=== PATIENT | female | born 1995 | race American Indian/Alaskan Native ===

== ENCOUNTER 2022-02-10 02:49 | Inpatient (IN) | payer SELFPAY ==
[2022-02-10] MEDS ORDERED: SODIUM CHLORIDE 0.9% 1000 ML 1,000 ML IV ONE ×2 (03:03→05:23)
[2022-02-10 03:32] LABS: Hematocrit 29.4 % (30.3-42.9); Hemoglobin 9.5 gm/dl (10.1-14.3); Mean Corpuscular HGB Conc 32 % (30-34); Mean Corpuscular Volume 95 fl (79-97); Platelet Count 263 K/mm3 (140-440); Red Blood Count 3.09 M/mm3 (3.65-5.03)
[2022-02-10 03:34] LABS: Red Cell Distribution Width 24.3 % (13.2-15.2)
[2022-02-10 03:39] LABS: INR 1.12 (0.87-1.13)
[2022-02-10 03:53] LABS: Alanine Aminotransferase 31 units/L (7-56); Albumin 3.3 g/dL (3.9-5); BUN/Creatinine Ratio 10; Blood Urea Nitrogen 4 mg/dL (7-17); Calcium 7.8 mg/dL (8.4-10.2); Hemolysis Index 4
[2022-02-10] MEDS ORDERED: THIAMINE 100 MG, FOLIC ACID 1 MG, MULTIPLE VITAMIN INJ, ADULT 10 ML in SODIUM CHLORIDE ... IV ONE (03:55)
--- NOTE | 2022-02-10 04:07 | XRay Report ---
CHEST 1 VIEW 02/10/2022 3:25 AM INDICATION / CLINICAL INFORMATION: Altered Mental Status. COMPARISON: None available. FINDINGS: SUPPORT DEVICES: None. HEART / MEDIASTINUM: No significant abnormality. LUNGS / PLEURA: No significant pulmonary or pleural abnormality. No pneumothorax. ADDITIONAL FINDINGS: A nipple shadow is noted on the right. IMPRESSION: 1. No acute chest process. Signer Name: Huseyin Hunter MD Signed: 02/10/2022 4:02 AM Workstation Name: [facility] [employer]
[2022-02-10 04:23] LABS: Anisocytosis 2+; Basophils % (Manual) 0 % (0.0-1.8); Eosinophils % (Manual) 0 % (0.0-4.3); Platelet Estimate Consistent w Auto; Total Cells Counted 100
--- NOTE | 2022-02-10 05:26 | Emergency Department Report ---
ED General Adult HPI - General Chief complaint: Hypoglycemia Stated complaint: HYPOGLYCEMIA PUI?: No Time Seen by Provider: 02/10/22 03:02 Source: patient, EMS Mode of arrival: Stretcher Limitations: No Limitations - History of Present Illness Initial comments: hypoglycemia patient took 100mg of benadryl also 26 YEARS OLD ALCOHOLIC, LAST SIP FEW DAYS AGO PER PATIENT SHE QUIT COLD TURKEY , TOOK 100 MG OF BENADRYL TONIGHT TO SLEEP, ems FOUND HER UNRESPONSIVE bs WAS LOW , -: days(s) Worsens with: none Associated Symptoms: denies: denies other symptoms, confusion, chest pain, cough Treatments Prior to Arrival: none - Related Data Allergies Allergy/AdvReac Type Severity Reaction Status Date / Time No Known Allergies Allergy Verified 02/10/22 03:18 ED Review of Systems ROS: Stated complaint: HYPOGLYCEMIA Other details as noted in HPI Constitutional: denies: chills, fever Eyes: denies: eye pain, eye discharge, vision change ENT: denies: ear pain, throat pain Respiratory: denies: cough, shortness of breath, wheezing Cardiovascular: denies: chest pain, palpitations Endocrine: no symptoms reported Gastrointestinal: denies: abdominal pain, nausea, diarrhea Genitourinary: denies: urgency, dysuria, discharge Musculoskeletal: denies: back pain, joint swelling, arthralgia Skin: denies: rash, lesions Neurological: denies: headache, weakness, paresthesias Psychiatric: denies: anxiety, depression Hematological/Lymphatic: denies: easy bleeding, easy bruising ED Past Medical Hx - Past Medical History Previous Medical History?: No Hx Hypertension: No ED Physical Exam - General Limitations: No Limitations General appearance: alert, cachectic - Head Head exam: Present: atraumatic, normocephalic - Eye Eye exam: Present: normal appearance - ENT ENT exam: Present: mucous membranes moist - Neck Neck exam: Present: normal inspection - Respiratory Respiratory exam: Present: normal lung sounds bilaterally. Absent: respiratory distress - Cardiovascular Cardiovascular Exam: Present: regular rate, normal rhythm. Absent: systolic murmur, diastolic murmur, rubs, gallop - GI/Abdominal GI/Abdominal exam: Present: soft, normal bowel sounds - Extremities Exam Extremities exam: Present: normal inspection - Back Exam Back exam: Present: normal inspection - Neurological Exam Neurological exam: Present: alert, oriented X3 - Psychiatric Psychiatric exam: Present: normal affect, normal mood - Skin Skin exam: Present: warm, dry, intact, normal color. Absent: rash ED Medical Decision Making - Lab Data Result diagrams: 02/10/22 03:11 02/10/22 03:11 Critical care attestation.: If time is entered above; I have spent that time in minutes in the direct care of this critically ill patient, excluding procedure time. ED Disposition Clinical Impression: Alcohol abuse, Alcoholic ketoacidosis, Hypoglycemia Disposition: ADMITTED INPATIENT Is pt being admited?: Yes Does the pt Need Aspirin: No Condition: Fair Referrals: PRIMARY CARE, [Primary Care Provider] - 3-5 Days
[2022-02-10] MEDS: POTASSIUM CHLORIDE 10 MEQ 10 MEQ/100 ML BAG IV SCH ×4 (07:39→17:52)
[2022-02-10 08:11] LABS: Amphetamine Screen,Urine Negative; Benzodiazepines Screen,Urine Negative; Cannabinoid Screen,Urine Negative; Cocaine Screen,Urine Negative; Methadone Screen,Urine Negative; Opiate Screen,Urine Negative
[2022-02-10] MEDS ORDERED: ACETAMINOPHEN 325 MG TAB PO PRN ×2 (08:16→19:34)
--- NOTE | 2022-02-10 08:16 | History and Physical Report ---
History of Present Illness Date of examination: 02/10/22 Date of admission: 02/10/2022 History of present illness: 26-year-old female with PMH of chronic alcohol abuse drinking two-point of vodka daily since years, alcoholic liver disease with elevated LFTs and alcohol use related seizures for which she was admitted to [facility] in 2020 lives with her sisters. Reportedly at the urgings of her family, she quit drinking cold turkey on day before yesterday at about 10 PM. She was not feeling well and did not eat much yesterday and the EMS was called as she was very sleepy and reported blood glucose was low and brought to ED. in the ED, afebrile with a stable vital signs, heart rate 102, WBC 19.6, hemoglobin 9.5, magnesium 1.2, potassium 3.2, chloride 92, CO2 18, anion gap 29, AST 181, ALT 31, ALP 307, lactic acid 9.9, drug screen negative except alcohol level 0.12 and glucose 140. Patient is currently fully alert and oriented and is able to offer a good history. She has coarse and tremors. Currently has no nausea and is hungry and wants to eat. Patient was given IV fluids, thiamine and 40 KCl IV in ED so far. Patient is being admitted for leukocytosis, nongap metabolic acidosis, lactic acidosis in the setting of alcohol abuse, hypoglycemia with poor p.o. intake, hypokalemia, hypomagnesemia with early alcohol withdrawal symptoms. Past History Past Medical History: liver disease, seizures. denies: COPD, diabetes, hypertension, stroke Past Surgical History: No surgical history Social history: smoking (3 cigars daily), alcohol abuse (2+ daily at least since 5 years), other (Lives with her sisters, denies using illicit drugs, currently unemployed.). denies: IV drug use Family history: CAD (2 maternal aunts), cancer (Grandmother had breast cancer), other (Father has alcoholism). denies: stroke Medications and Allergies Allergies Allergy/AdvReac Type Severity Reaction Status Date / Time No Known Allergies Allergy Verified 02/10/22 03:18 Active Meds: Active Medications Potassium Chloride (Kcl 10meq/100ml) 10 meq in 100 mls @ 100 mls/hr IV Q1H SHERWIN Stop: 02/10/22 10:59 Last Admin: 02/10/22 07:39 Dose: 100 mls/hr Review of Systems All systems: negative Constitutional: poor appetite, no fever, no chills Ears, nose, mouth and throat: sore throat Cardiovascular: no chest pain, no palpitations, no edema Respiratory: no cough, no shortness of breath, no congestion Gastrointestinal: no vomiting, no diarrhea, no hematochezia Genitourinary Female: no dysuria, no urinary frequency Musculoskeletal: no muscle cramps Integumentary: no rash Neurological: no seizures, no headaches Psychiatric: anxiety, no hallucinations Endocrine: low blood sugars, no polydipsia, no polyuria Hematologic/Lymphatic: no easy bruising, no easy bleeding Exam - Constitutional Vitals: Temp Pulse Resp BP Pulse Ox 97.9 F 108 H 20 130/90 100 02/10/22 07:38 02/10/22 07:38 02/10/22 07:38 02/10/22 07:38 02/10/22 07:38 General appearance: Present: no acute distress, well-nourished - EENT Eyes: Present: PERRL, EOM intact. Absent: scleral icterus ENT: hearing intact, clear oral mucosa - Neck Neck: Present: supple. Absent: masses or JVD - Respiratory Respiratory effort: normal Respiratory: bilateral: CTA - Cardiovascular Rhythm: regular - Extremities Extremities: pulses intact, No edema - Abdominal General gastrointestinal: Present: soft, non-tender, non-distended, normal bowel sounds Female genitourinary: Present: deferred - Rectal Rectal Exam: deferred - Integumentary Integumentary: Absent: rash - Musculoskeletal Musculoskeletal: strength equal bilaterally - Psychiatric Psychiatric: other (anxious) - Neurologic Neurologic: no focal deficits HEART Score - HEART Score Troponin: Troponin T < 0.010 ng/mL (0.00-0.029) 02/10/22 03:11 Results - Labs CBC & Chem 7: 02/10/22 03:11 02/10/22 07:04 Labs: Laboratory Last Values WBC 19.6 K/mm3 (4.5-11.0) H 02/10/22 03:11 RBC 3.09 M/mm3 (3.65-5.03) L 02/10/22 03:11 Hgb 9.5 gm/dl (10.1-14.3) L 02/10/22 03:11 Hct 29.4 % (30.3-42.9) L 02/10/22 03:11 MCV 95 fl (79-97) 02/10/22 03:11 MCH 31 pg (28-32) 02/10/22 03:11 MCHC 32 % (30-34) 02/10/22 03:11 RDW 24.3 % (13.2-15.2) H 02/10/22 03:11 Plt Count 263 K/mm3 (140-440) 02/10/22 03:11 Add Manual Diff Complete 02/10/22 03:11 Total Counted 100 02/10/22 03:11 Seg Neutrophils % Survey Workers Supervisor 02/10/22 03:11 Seg Neuts % (Manual) 97.0 % (40.0-70.0) H 02/10/22 03:11 Band Neutrophils % 0 % 02/10/22 03:11 Lymphocytes % (Manual) 1.0 % (13.4-35.0) L 02/10/22 03:11 Reactive Lymphs % (Man) 0 % 02/10/22 03:11 Monocytes % (Manual) 2.0 % (0.0-7.3) 02/10/22 03:11 Eosinophils % (Manual) 0 % (0.0-4.3) 02/10/22 03:11 Basophils % (Manual) 0 % (0.0-1.8) 02/10/22 03:11 Metamyelocytes % 0 % 02/10/22 03:11 Myelocytes % 0 % 02/10/22 03:11 Promyelocytes % 0 % 02/10/22 03:11 Blast Cells % 0 % 02/10/22 03:11 Nucleated RBC % Not Reportable 02/10/22 03:11 Seg Neutrophils # Man 19.0 K/mm3 (1.8-7.7) H 02/10/22 03:11 Band Neutrophils # 0.0 K/mm3 02/10/22 03:11 Lymphocytes # (Manual) 0.2 K/mm3 (1.2-5.4) L 02/10/22 03:11 Abs React Lymphs (Man) 0.0 K/mm3 02/10/22 03:11 Monocytes # (Manual) 0.4 K/mm3 (0.0-0.8) 02/10/22 03:11 Eosinophils # (Manual) 0.0 K/mm3 (0.0-0.4) 02/10/22 03:11 Basophils # (Manual) 0.0 K/mm3 (0.0-0.1) 02/10/22 03:11 Metamyelocytes # 0.0 K/mm3 02/10/22 03:11 Myelocytes # 0.0 K/mm3 02/10/22 03:11 Promyelocytes # 0.0 K/mm3 02/10/22 03:11 Blast Cells # 0.0 K/mm3 02/10/22 03:11 WBC Morphology Not Reportable 02/10/22 03:11 Hypersegmented Neuts Not Reportable 02/10/22 03:11 Hyposegmented Neuts Not Reportable 02/10/22 03:11 Hypogranular Neuts Not Reportable 02/10/22 03:11 Smudge Cells Not Reportable 02/10/22 03:11 Toxic Granulation Not Reportable 02/10/22 03:11 Toxic Vacuolation Not Reportable 02/10/22 03:11 Dohle Bodies Not Reportable 02/10/22 03:11 Pelger-Huet Anomaly Not Reportable 02/10/22 03:11 Jayce Rods Not Reportable 02/10/22 03:11 Platelet Estimate Consistent w auto 02/10/22 03:11 Clumped Platelets Not Reportable 02/10/22 03:11 Plt Clumps, EDTA Not Reportable 02/10/22 03:11 Large Platelets Not Reportable 02/10/22 03:11 Giant Platelets Not Reportable 02/10/22 03:11 Platelet Satelliting Not Reportable 02/10/22 03:11 Plt Morphology Comment Not Reportable 02/10/22 03:11 RBC Morphology Not Reportable 02/10/22 03:11 Dimorphic RBCs Not Reportable 02/10/22 03:11 Polychromasia Not Reportable 02/10/22 03:11 Hypochromasia Not Reportable 02/10/22 03:11 Poikilocytosis Not Reportable 02/10/22 03:11 Anisocytosis 2+ 02/10/22 03:11 Microcytosis Not Reportable 02/10/22 03:11 Macrocytosis Not Reportable 02/10/22 03:11 Spherocytes Not Reportable 02/10/22 03:11 Pappenheimer Bodies Not Reportable 02/10/22 03:11 Sickle Cells Not Reportable 02/10/22 03:11 Target Cells Not Reportable 02/10/22 03:11 Tear Drop Cells Not Reportable 02/10/22 03:11 Ovalocytes Not Reportable 02/10/22 03:11 Helmet Cells Not Reportable 02/10/22 03:11 [place] Bodies Not Reportable 02/10/22 03:11 [place] Rings Not Reportable 02/10/22 03:11 [place] Cells Not Reportable 02/10/22 03:11 Bite Cells Not Reportable 02/10/22 03:11 Crenated Cell Not Reportable 02/10/22 03:11 Elliptocytes Not Reportable 02/10/22 03:11 Acanthocytes (Spur) Not Reportable 02/10/22 03:11 Rouleaux Not Reportable 02/10/22 03:11 Hemoglobin C Crystals Not Reportable 02/10/22 03:11 Schistocytes Not Reportable 02/10/22 03:11 Malaria parasites Not Reportable 02/10/22 03:11 Mike Bodies Not Reportable 02/10/22 03:11 Hem Pathologist Commnt No 02/10/22 03:11 PT 16.0 Sec. (12.2-14.9) H 02/10/22 03:11 INR 1.12 (0.87-1.13) 02/10/22 03:11 Sodium 137 mmol/L (137-145) 02/10/22 03:11 Potassium 3.2 mmol/L (3.6-5.0) L 02/10/22 07:04 Chloride 92.9 mmol/L (98-107) L 02/10/22 03:11 Carbon Dioxide 18 mmol/L (22-30) L 02/10/22 03:11 Anion Gap 29 mmol/L 02/10/22 03:11 BUN 4 mg/dL (7-17) L 02/10/22 03:11 Creatinine 0.4 mg/dL (0.6-1.2) L 02/10/22 03:11 Estimated GFR > 60 ml/min 02/10/22 03:11 BUN/Creatinine Ratio 10 % 02/10/22 03:11 Glucose 140 mg/dL (65-100) H 02/10/22 03:11 Ketones Quantitative Negative (Negative) 02/10/22 03:11 Lactic Acid 10.10 mmol/L (0.7-2.0) H* 02/10/22 05:16 Calcium 7.8 mg/dL (8.4-10.2) L 02/10/22 03:11 Total Bilirubin 1.10 mg/dL (0.1-1.2) 02/10/22 03:11 AST 186 units/L (5-40) H 02/10/22 03:11 ALT 31 units/L (7-56) 02/10/22 03:11 Alkaline Phosphatase 309 units/L (35-129) H 02/10/22 03:11 Total Creatine Kinase 367 units/L (30-135) H 02/10/22 03:11 Troponin T < 0.010 ng/mL (0.00-0.029) 02/10/22 03:11 C-Reactive Protein 0.30 mg/dL (0.00-1.30) 02/10/22 03:11 NT-Pro-B Natriuret Pep 70.71 pg/mL (0-450) 02/10/22 03:11 Total Protein 6.9 g/dL (6.3-8.2) 02/10/22 03:11 Albumin 3.3 g/dL (3.9-5) L 02/10/22 03:11 Albumin/Globulin Ratio 0.9 % 02/10/22 03:11 Lipase 8 units/L (13-60) L 02/10/22 03:11 Salicylates < 0.3 mg/dL (2.8-20.0) L 02/10/22 03:11 Urine Opiates Screen Negative 02/10/22 Unknown Urine Methadone Screen Negative 02/10/22 Unknown Acetaminophen 5.0 ug/mL (10.0-30.0) L 02/10/22 03:11 Ur Barbiturates Screen Negative 02/10/22 Unknown Ur Phencyclidine Scrn Negative 02/10/22 Unknown Ur Amphetamines Screen Negative 02/10/22 Unknown U Benzodiazepines Scrn Negative 02/10/22 Unknown Urine Cocaine Screen Negative 02/10/22 Unknown U Marijuana (THC) Screen Negative 02/10/22 Unknown Plasma/Serum Alcohol 0.12 % (0-0.07) H 02/10/22 03:11 Assessment and Plan Assessment and plan: Chronic alcohol abuse, 2 points of vodka daily at least since 5 years or more History of alcohol use related seizures History of elevated LFTs, likely from alcohol abuse Reported altered mental status with a low blood glucose, currently fully alert and oriented Early alcohol withdrawal symptoms, last drink more than 24 hours ago per patient, alcohol level 0.12, patient wants to quit drinking Leukocytosis without focal symptoms/signs of sepsis None anion gap metabolic acidosis/lactic acidosis in the setting of alcohol abuse and poor p.o. intake Hypokalemia and hypomagnesemia Normocytic anemia, likely chronic Plan: Continue hydration with D5 normal saline with 20 KCl at home level per hour Lactic acid improving, continue to monitor Continue thiamine, folic acid and multivitamins daily. Replace potassium and magnesium and monitor levels. Placed on CIWA protocol. CXR, UA and blood cultures ordered We will hold off antibiotic therapy since patient does not appear to be septic DVT prophylaxis: Lovenox GI prophylaxis: Pepcid CODE STATUS: Full code Discussed with the patient in detail. Advance Directives: No VTE prophylaxis?: Chemical Plan of care discussed with patient/family: Yes
[2022-02-10] MEDS ORDERED: LORazepam 2 MG TAB PO PRN (08:22)
[2022-02-10] MEDS ORDERED: LORazepam 2 MG/ML VIAL IV PRN (08:22)
[2022-02-10] MEDS ORDERED: chlordiazePOXIDE 25 MG CAP PO PRN (08:22)
[2022-02-10] MEDS ORDERED: D5NS W/KCL 20 MEQ 20 MEQ/1,000 ML BAG IV SCH (09:00)
[2022-02-10] MEDS ORDERED: ONDANSETRON 4 MG/2 ML INJ IV PRN (09:30)
[2022-02-10] MEDS: LORazepam 2 MG/ML VIAL IV PRN (12:27)
[2022-02-10] MEDS: THIAMINE 100 MG TAB PO SCH (12:27)
[2022-02-10] MEDS: ENOXAPARIN 40 MG/0.4 ML INJ SUB-Q SCH (12:27)
[2022-02-10] MEDS: FOLIC ACID 1 MG TAB PO SCH (12:27)
[2022-02-10] MEDS: FAMOTIDINE 20 MG TAB PO SCH ×2 (12:28→23:29)
[2022-02-10] MEDS: MULTIVITAMINS,THER W-MINERALS TAB PO SCH (12:29)
[2022-02-10] MEDS ORDERED: oxyCODONE /ACETAMINOPHEN 5-325MG TAB PO PRN (19:34)
[2022-02-10] MEDS ORDERED: HYDROmorphone 0.5 MG/0.5 ML INJ IV PRN (19:34)
[2022-02-11] MEDS: LORazepam 2 MG/ML VIAL IV PRN (00:21)
[2022-02-11] MEDS ORDERED: MAGNESIUM SULFATE 4 GM/100 ML BAG IV ONE (03:12)
[2022-02-11 05:59] LABS: Bilirubin,Urine NEG (Negative); Blood,Urine LG (Negative); Color,Urine Red (Yellow)
[2022-02-11 06:04] LABS: Bacteria,Urine 3+ /HPF (Negative)
[2022-02-11 06:06] LABS: RBC,Urine > 182.0 /HPF (0.0-6.0); WBC,Urine > 182.0 /HPF (0.0-6.0)
--- NOTE | 2022-02-11 07:20 | XRay Report ---
CHEST 1 VIEW 02/11/2022 6:05 AM INDICATION / CLINICAL INFORMATION: Leukocytosis/sepsis. COMPARISON: 02/10/2022 FINDINGS: SUPPORT DEVICES: None. HEART / MEDIASTINUM: No significant abnormality. LUNGS / PLEURA: No significant pulmonary or pleural abnormality. No pneumothorax. ADDITIONAL FINDINGS: None IMPRESSION: 1. No acute chest process. Signer Name: Huseyin Hunter MD Signed: 02/11/2022 7:16 AM Workstation Name: [facility] [email or web address]
--- NOTE | 2022-02-11 11:53 | Electrocardiograph Report ---
[facility] Test Date: 2022-02-10 Test Time: 07:26:59 Pat Name: RONDA VALVERDE Department: Room: A383 1 Gender: F Marketing Project Manager: NURSE : 1995 Requested By: ABBE ALMONTE Order Number: [id number] Reading MD: Miguel Jensen Measurements Intervals [place] Rate: 105 P: 32 IA: 152 QRS: 60 QRSD: 69 T: 45 QT: 402 QTc: 532 Interpretive Statements Sinus tachycardia Nonspecific T abnormalities, anterior leads Prolonged QT interval No previous ECG available for comparison baseline artifact Electronically Signed On 02-11-2022 8:52:51 PDT by Miguel Jensen
--- NOTE | 2022-02-11 12:41 | Progress Note ---
Assessment and Plan Assessment and plan: #Alcohol dependence #Alcohol withdrawal complicated by seizure - Counseled patient on the importance of ETOH cessation. Assess patient's current ETOH consumption. Assisted with trying to arrange resources for patient to adequately work towards ETOH cessation. Patient expresses understanding. Continue with [facility] protocol. Continue multivitamin, folic acid, and thiamine daily -Time: +15 mins #Acute metabolic encephalopathyresolved Likely secondary from postictal state #Lactic acidosis Pending repeat lactic acid. Likely elevated secondary to acute seizure. #Leukocytosis WBC 19. Pending repeat labs. Likely DC significant decrease given acute seizure has since resolved. If leukocytosis and lactic acid continue to remain elevated, antibiotics will be initiated. #Acute cystitis without hematuria - Urinalysis revealing small leukocyte esterase, WBC >182, 4+ bacteria, 3+ WBC clumps Starting Bactrim double strength 1 tab twice daily x3 days. #Advanced care planning -Disease education conducted, care plan discussed, diagnoses discussed, prognosis discussed, and patient acknowledges understanding with care plan -Time: +30 min Disposition Plan: Continue medical management Total Time Spent with Patient (Minutes): 45 minutes History Interval history: No acute events overnight. Hospitalist Physical - Constitutional Vitals: Temp Pulse Resp BP Pulse Ox 99.0 F 109 H 18 111/70 100 02/11/22 11:27 02/11/22 11:27 02/11/22 11:27 02/11/22 11:27 02/11/22 11:27 General appearance: Present: no acute distress, well-nourished - EENT Eyes: Present: PERRL, EOM intact ENT: hearing intact, clear oral mucosa, dentition normal - Neck Neck: Present: supple, normal ROM - Respiratory Respiratory effort: normal Respiratory: bilateral: CTA - Cardiovascular Heart rate: 110 Rhythm: regular Heart Sounds: Present: S1 & S2 - Extremities Extremities: no ischemia, pulses intact, pulses symmetrical, No edema, normal temperature, normal color, Full ROM Peripheral Pulses: within normal limits - Abdominal General gastrointestinal: soft, non-tender, non-distended, normal bowel sounds - Integumentary Integumentary: Present: clear, warm, dry - Psychiatric Psychiatric: appropriate mood/affect, intact judgment & insight, memory intact, cooperative - Neurologic Neurologic: CNII-XII intact, moves all extremities - Allied Health Allied health notes reviewed: nursing HEART Score - HEART Score Troponin: Troponin T < 0.010 ng/mL (0.00-0.029) 02/10/22 03:11 Results - Labs CBC & Chem 7: 02/10/22 03:11 02/10/22 07:04 Labs: Laboratory Last Values WBC 19.6 K/mm3 (4.5-11.0) H 02/10/22 03:11 RBC 3.09 M/mm3 (3.65-5.03) L 02/10/22 03:11 Hgb 9.5 gm/dl (10.1-14.3) L 02/10/22 03:11 Hct 29.4 % (30.3-42.9) L 02/10/22 03:11 MCV 95 fl (79-97) 02/10/22 03:11 MCH 31 pg (28-32) 02/10/22 03:11 MCHC 32 % (30-34) 02/10/22 03:11 RDW 24.3 % (13.2-15.2) H 02/10/22 03:11 Plt Count 263 K/mm3 (140-440) 02/10/22 03:11 Add Manual Diff Complete 02/10/22 03:11 Total Counted 100 02/10/22 03:11 Seg Neutrophils % Solution Professional 02/10/22 03:11 Seg Neuts % (Manual) 97.0 % (40.0-70.0) H 02/10/22 03:11 Band Neutrophils % 0 % 02/10/22 03:11 Lymphocytes % (Manual) 1.0 % (13.4-35.0) L 02/10/22 03:11 Reactive Lymphs % (Man) 0 % 02/10/22 03:11 Monocytes % (Manual) 2.0 % (0.0-7.3) 02/10/22 03:11 Eosinophils % (Manual) 0 % (0.0-4.3) 02/10/22 03:11 Basophils % (Manual) 0 % (0.0-1.8) 02/10/22 03:11 Metamyelocytes % 0 % 02/10/22 03:11 Myelocytes % 0 % 02/10/22 03:11 Promyelocytes % 0 % 02/10/22 03:11 Blast Cells % 0 % 02/10/22 03:11 Nucleated RBC % Not Reportable 02/10/22 03:11 Seg Neutrophils # Man 19.0 K/mm3 (1.8-7.7) H 02/10/22 03:11 Band Neutrophils # 0.0 K/mm3 02/10/22 03:11 Lymphocytes # (Manual) 0.2 K/mm3 (1.2-5.4) L 02/10/22 03:11 Abs React Lymphs (Man) 0.0 K/mm3 02/10/22 03:11 Monocytes # (Manual) 0.4 K/mm3 (0.0-0.8) 02/10/22 03:11 Eosinophils # (Manual) 0.0 K/mm3 (0.0-0.4) 02/10/22 03:11 Basophils # (Manual) 0.0 K/mm3 (0.0-0.1) 02/10/22 03:11 Metamyelocytes # 0.0 K/mm3 02/10/22 03:11 Myelocytes # 0.0 K/mm3 02/10/22 03:11 Promyelocytes # 0.0 K/mm3 02/10/22 03:11 Blast Cells # 0.0 K/mm3 02/10/22 03:11 WBC Morphology Not Reportable 02/10/22 03:11 Hypersegmented Neuts Not Reportable 02/10/22 03:11 Hyposegmented Neuts Not Reportable 02/10/22 03:11 Hypogranular Neuts Not Reportable 02/10/22 03:11 Smudge Cells Not Reportable 02/10/22 03:11 Toxic Granulation Not Reportable 02/10/22 03:11 Toxic Vacuolation Not Reportable 02/10/22 03:11 Dohle Bodies Not Reportable 02/10/22 03:11 Pelger-Huet Anomaly Not Reportable 02/10/22 03:11 Jayce Rods Not Reportable 02/10/22 03:11 Platelet Estimate Consistent w auto 02/10/22 03:11 Clumped Platelets Not Reportable 02/10/22 03:11 Plt Clumps, EDTA Not Reportable 02/10/22 03:11 Large Platelets Not Reportable 02/10/22 03:11 Giant Platelets Not Reportable 02/10/22 03:11 Platelet Satelliting Not Reportable 02/10/22 03:11 Plt Morphology Comment Not Reportable 02/10/22 03:11 RBC Morphology Not Reportable 02/10/22 03:11 Dimorphic RBCs Not Reportable 02/10/22 03:11 Polychromasia Not Reportable 02/10/22 03:11 Hypochromasia Not Reportable 02/10/22 03:11 Poikilocytosis Not Reportable 02/10/22 03:11 Anisocytosis 2+ 02/10/22 03:11 Microcytosis Not Reportable 02/10/22 03:11 Macrocytosis Not Reportable 02/10/22 03:11 Spherocytes Not Reportable 02/10/22 03:11 Pappenheimer Bodies Not Reportable 02/10/22 03:11 Sickle Cells Not Reportable 02/10/22 03:11 Target Cells Not Reportable 02/10/22 03:11 Tear Drop Cells Not Reportable 02/10/22 03:11 Ovalocytes Not Reportable 02/10/22 03:11 Helmet Cells Not Reportable 02/10/22 03:11 [place] Bodies Not Reportable 02/10/22 03:11 [place] Rings Not Reportable 02/10/22 03:11 Crump Cells Not Reportable 02/10/22 03:11 Bite Cells Not Reportable 02/10/22 03:11 Crenated Cell Not Reportable 02/10/22 03:11 Elliptocytes Not Reportable 02/10/22 03:11 Acanthocytes (Spur) Not Reportable 02/10/22 03:11 Rouleaux Not Reportable 02/10/22 03:11 Hemoglobin C Crystals Not Reportable 02/10/22 03:11 Schistocytes Not Reportable 02/10/22 03:11 Malaria parasites Not Reportable 02/10/22 03:11 Mike Bodies Not Reportable 02/10/22 03:11 Hem Pathologist Commnt No 02/10/22 03:11 PT 16.0 Sec. (12.2-14.9) H 02/10/22 03:11 INR 1.12 (0.87-1.13) 02/10/22 03:11 Sodium 137 mmol/L (137-145) 02/10/22 03:11 Potassium 3.2 mmol/L (3.6-5.0) L 02/10/22 07:04 Chloride 92.9 mmol/L (98-107) L 02/10/22 03:11 Carbon Dioxide 18 mmol/L (22-30) L 02/10/22 03:11 Anion Gap 29 mmol/L 02/10/22 03:11 BUN 4 mg/dL (7-17) L 02/10/22 03:11 Creatinine 0.4 mg/dL (0.6-1.2) L 02/10/22 03:11 Estimated GFR > 60 ml/min 02/10/22 03:11 BUN/Creatinine Ratio 10 % 02/10/22 03:11 Glucose 140 mg/dL (65-100) H 02/10/22 03:11 Ketones Quantitative Negative (Negative) 02/10/22 03:11 Lactic Acid 10.10 mmol/L (0.7-2.0) H* 02/10/22 05:16 Calcium 7.8 mg/dL (8.4-10.2) L 02/10/22 03:11 Magnesium 1.20 mg/dL (1.7-2.3) L 02/10/22 08:29 Total Bilirubin 1.10 mg/dL (0.1-1.2) 02/10/22 03:11 AST 186 units/L (5-40) H 02/10/22 03:11 ALT 31 units/L (7-56) 02/10/22 03:11 Alkaline Phosphatase 309 units/L (35-129) H 02/10/22 03:11 Total Creatine Kinase 367 units/L (30-135) H 02/10/22 03:11 Troponin T < 0.010 ng/mL (0.00-0.029) 02/10/22 03:11 C-Reactive Protein 0.30 mg/dL (0.00-1.30) 02/10/22 03:11 NT-Pro-B Natriuret Pep 70.71 pg/mL (0-450) 02/10/22 03:11 Total Protein 6.9 g/dL (6.3-8.2) 02/10/22 03:11 Albumin 3.3 g/dL (3.9-5) L 02/10/22 03:11 Albumin/Globulin Ratio 0.9 % 02/10/22 03:11 Lipase 8 units/L (13-60) L 02/10/22 03:11 Urine Color Red (Yellow) 02/11/22 Unknown Urine Turbidity Cloudy (Clear) 02/11/22 Unknown Urine pH 7.0 (5.0-7.0) 02/11/22 Unknown Ur Specific [place] 1.011 (1.003-1.030) 02/11/22 Unknown Urine Protein 30 mg/dl mg/dL (Negative) 02/11/22 Unknown Urine Glucose (UA) Neg mg/dL (Negative) 02/11/22 Unknown Urine Ketones Neg mg/dL (Negative) 02/11/22 Unknown Urine Blood Lg (Negative) 02/11/22 Unknown Urine Nitrite Neg (Negative) 02/11/22 Unknown Urine Bilirubin Neg (Negative) 02/11/22 Unknown Urine Urobilinogen 2.0 mg/dL (<2.0) 02/11/22 Unknown Ur Leukocyte Esterase Sm (Negative) 02/11/22 Unknown Urine WBC (Auto) > 182.0 /HPF (0.0-6.0) H 02/11/22 Unknown Urine RBC (Auto) > 182.0 /HPF (0.0-6.0) 02/11/22 Unknown U Epithel Cells (Auto) 4.0 /HPF (0-13.0) 02/11/22 Unknown Urine Bacteria (Auto) 3+ /HPF (Negative) 02/11/22 Unknown Urine WBC Clumps 3+ /HPF 02/11/22 Unknown Urine Yeast (Budding) 3+ /HPF 02/11/22 Unknown Salicylates < 0.3 mg/dL (2.8-20.0) L 02/10/22 03:11 Urine Opiates Screen Negative 02/10/22 Unknown Urine Methadone Screen Negative 02/10/22 Unknown Acetaminophen 5.0 ug/mL (10.0-30.0) L 02/10/22 03:11 Ur Barbiturates Screen Negative 02/10/22 Unknown Ur Phencyclidine Scrn Negative 02/10/22 Unknown Ur Amphetamines Screen Negative 02/10/22 Unknown U Benzodiazepines Scrn Negative 02/10/22 Unknown Urine Cocaine Screen Negative 02/10/22 Unknown U Marijuana (THC) Screen Negative 02/10/22 Unknown Drugs of Abuse Note Disclamer 02/10/22 Unknown Plasma/Serum Alcohol 0.12 % (0-0.07) H 02/10/22 03:11 Microbiology: Microbiology 02/10/22 08:29 Peripheral/Venous Blood Culture - Preliminary Culture in Progress 02/10/22 08:29 Peripheral/Venous Blood Culture - Preliminary Culture in Progress Genao/IV: Voiding Method External Female Catheter Active Medications - Current Medications Current Medications: Generic Name Dose Route Start Last Admin Trade Name Freq PRN Reason Stop Dose Admin Acetaminophen 650 mg 02/10/22 19:34 Acetaminophen 325 Mg Tab PO Q4H PRN Pain MILD(1-3)/Fever >100.5/CHEN Chlordiazepoxide HCl 50 mg 02/10/22 08:22 Chlordiazepoxide 25 Mg Cap PO Q1H PRN CIWA-Ar 8-15 Enoxaparin Sodium 40 mg 02/10/22 10:00 02/10/22 12:27 Enoxaparin 40 Mg/0.4 Ml Inj SUB-Q Not Given DAILY SHERWIN Protocol Famotidine 20 mg 02/10/22 10:00 02/10/22 23:29 Famotidine 20 Mg Tab PO 20 mg BID SHERWIN Administration Folic Acid 1 mg 02/10/22 10:00 02/10/22 12:27 Folic Acid 1 Mg Tab PO 1 mg QDAY SHERWIN Administration Potassium Chloride/Dextrose/Sod Cl 20 meq in 1,000 mls @ 125 mls/hr 02/10/22 09:00 D5w/Ns W/Kcl 20meq IV DIRECT SHERWIN Lorazepam 2 mg 02/10/22 08:22 Lorazepam 2 Mg Tab PO Q1H PRN CIWA-Ar 8-15 Lorazepam 4 mg 02/10/22 08:22 02/11/22 00:21 Lorazepam 2 Mg/Ml Vial IV 4 mg Q1H PRN Administration CIWA-Ar 16-25 Lorazepam 4 mg 02/10/22 08:22 Lorazepam 2 Mg/Ml Vial IV Q15MIN PRN CIWA-Ar >25 Multivitamins/Minerals 1 each 02/10/22 10:00 02/10/22 12:29 Multivitamins,Ther W-Minerals Tab PO 1 each QDAY SHERWIN Administration Ondansetron HCl 4 mg 02/10/22 09:30 Ondansetron 4 Mg/2 Ml Inj IV Q8H PRN Nausea And Vomiting Sodium Chloride 10 ml 02/10/22 10:00 02/10/22 23:30 Sodium Chloride 0.9% 10 Ml Flush Syringe IV 10 ml BID SHERWIN Administration Sodium Chloride 10 ml 02/10/22 08:16 Sodium Chloride 0.9% 10 Ml Flush Syringe IV PRN PRN LINE FLUSH Sodium Chloride 10 ml 02/10/22 22:00 02/10/22 23:30 Sodium Chloride 0.9% 10 Ml Flush Syringe IV Not Given BID SHERWIN Sodium Chloride 10 ml 02/10/22 19:34 Sodium Chloride 0.9% 10 Ml Flush Syringe IV PRN PRN LINE FLUSH Thiamine HCl 100 mg 02/10/22 10:00 02/10/22 12:27 Thiamine 100 Mg Tab PO 100 mg DAILY SHERWIN Administration
[2022-02-11] MEDS: THIAMINE 100 MG TAB PO SCH (12:50)
[2022-02-11] MEDS: FAMOTIDINE 20 MG TAB PO SCH (12:50)
[2022-02-11] MEDS: FOLIC ACID 1 MG TAB PO SCH (12:51)
[2022-02-11] MEDS: MULTIVITAMINS,THER W-MINERALS TAB PO SCH (12:52)
[2022-02-11] MEDS: ENOXAPARIN 40 MG/0.4 ML INJ SUB-Q SCH ×2 (12:54→16:20)
[2022-02-11] MEDS ORDERED: POTASSIUM CHLORIDE ER 20 MEQ TAB PO ONE (13:00)
[2022-02-11 20:46] VITALS: BP 106/70
[2022-02-11 20:47] LABS: Basophils % (Auto) 0.5 % (0.0-1.8); Eosinophils % (Auto) 0.4 % (0.0-4.3); Hemoglobin 7.3 gm/dl (10.1-14.3); Lymphocytes # (Auto) 0.9 K/mm3 (1.2-5.4); Lymphocytes % (Auto) 17.2 % (13.4-35.0); Mean Corpuscular HGB Conc 32 % (30-34); Mean Corpuscular Volume 94 fl (79-97); Monocytes # (Auto) 0.2 K/mm3 (0.0-0.8); Monocytes % (Auto) 4.5 % (0.0-7.3); Platelet Count 150 K/mm3 (140-440); Red Blood Count 2.46 M/mm3 (3.65-5.03)
[2022-02-11 20:49] LABS: Red Cell Distribution Width 23.4 % (13.2-15.2)
[2022-02-11 21:12] LABS: Blood Urea Nitrogen 2 mg/dL (7-17); Calcium 7.2 mg/dL (8.4-10.2); Hemolysis Index 3
[2022-02-11 21:16] LABS: Alanine Aminotransferase 28 units/L (7-56); Albumin 2.8 g/dL (3.9-5); Blood Urea Nitrogen 2 mg/dL (7-17); Calcium 7.3 mg/dL (8.4-10.2); Hemolysis Index 0
[2022-02-11 21:22] LABS: BUN/Creatinine Ratio 5
[2022-02-11 21:23] LABS: BUN/Creatinine Ratio 5
[2022-02-11] MEDS ORDERED: SULFAMETHOXAZOLE/TRIMETHOPRIM 800/160MG DS TAB PO SCH (22:00)
== END 2022-02-11 23:04 | disposition home or self-care (01) | DRG 897 ==
LOC: ED 02:49 → 3A 19:34
PROVIDERS: ADMIT Internal Medicine; ATTEND Student in an Organized Health Care Education/Training Program
DX: F10.10 Alcohol abuse, uncomplicated (principal); Y90.0 Blood alcohol level of less than 20 mg/100 ml; R41.82 Altered mental status, unspecified; D72.829 Elevated white blood cell count, unspecified; E87.6 Hypokalemia; E83.42 Hypomagnesemia; D64.9 Anemia, unspecified
CPT/HCPCS: 36415; 71045; 80048; 80053; 80307; 80320; 81001; 82010; 82140; 82550; 83690; 83735; 83880; 84132; 84484; 85007; 85025; 85610; 86140; 87040; 87086; 93005; G0378; J3480; J3490; G0480; J1650; J2060; J3411; J3475; J7030